=== PATIENT | male | born 1960 | race Caucasian/White ===

== ENCOUNTER 2017-11-03 13:54 | Emergency (ER) | payer OTHER ==
[~2017-11-03] VITALS: Ht 170.2 cm; Wt 63.5 kg
== END 2017-11-03 18:03 | disposition home or self-care (01) ==
LOC: ER 13:54
DX: T17.228A Food in pharynx causing other injury, initial encounter (principal); W45.8XXA Other foreign body or object entering through skin, initial encounter; Y93.89 Activity, other specified; Y92.89 Other specified places as the place of occurrence of the external cause; Y99.8 Other external cause status

== ENCOUNTER 2025-04-10 08:00 | Outpatient (CLI) | payer OTHER ==
[~2025-04-10] VITALS: Ht 167.6 cm; Wt 63.0 kg
[2025-04-10] MEDS ORDERED: SYNTHROID50 MCG PO (10:34)
[2025-04-10] MEDS ORDERED: ATORVASTATIN CA10 MG PO (10:36)
[2025-04-10] MEDS ORDERED: BRIMONIDINE TART5 ML (10:36)
[2025-04-10 10:40] VITALS: BP 146/81
[2025-04-10 10:48] LABS: URINE APPEARANCE Clear; URINE BILIRRUBIN Negative (NEGATIVE); URINE BLOOD Negative; URINE COLOR Yellow; URINE GLUCOSE Negative (NEGATIVE); URINE KETONE Negative (NEGATIVE); URINE LEUKOCYTE Negative; URINE NITRATE Negative; URINE PROTEIN Negative (NEGATIVE); URINE UROBILINOGEN 0.2 E.U./dl
[2025-04-10 10:53] LABS: URINE BACTERIA 2.3 uL (0.0-1933); URINE CAST 0.00 uL (0.0-1.40); URINE EPITHELIAL CELLS 0.6 uL (0.0-38.8); URINE RBC 0.4 uL (0.0-20.8); URINE WBC 1.0 uL (0.0-23.2)
[2025-04-10 10:59] LABS: BASO % 1.7 % (0.1-1.2); EOS # 0.15 (0.04-0.54); EOS % 2.5 % (0.7-7.0); LYMPH # 1.40 (1.18-3.74); LYMPH % 23.1 % (19.3-53.1); MEAN PLATELET VOLUME 12.10 fl (9.4-12.4); MONO # 0.51 (0.24-0.82); MONO % 8.4 % (4.7-12.5); NEUT # 3.88 (1.56-6.13); NEUT % 64.1 % (34.0-71.1); RED CELL DISTRIBUTION WIDTH 12.4 % (11.6-14.4)
[2025-04-10 11:07] LABS: INR 1.04
[2025-04-10 11:26] LABS: ALT/SGPT 31.0 U/L (12-78); AST/SGOT 22.0 U/L (15-37); BILIRUBIN TOTAL 0.76 mg/dL (0.3-1.2); BUN CREA RATIO 23.0 (7.0-25.0); CREATININE SERUM 1.23 mg/dL (0.70-1.30); GFR 59.06; GLOBULINA 3.3 G/DL (2.4-3.5); GLUCOSE FASTING 108.0 mg/dL (65-100); OSMOLALITY SERUM 285.0 MOSM/KG (275-295)
[2025-05-14] MEDS ORDERED: PROTONIX40 MG PO (13:51)
== END 2025-04-10 08:30 | disposition home or self-care (01) ==
LOC: RAD 08:00 → ADM 09:30 → CIR.AMB 04-23 09:30 → EDSTATUS 04-23 09:30 → CIR.AMB 04-23 14:15
PROVIDERS: ATTEND Orthopaedic Surgery Hand Surgery
DX: M18.12 Unilateral primary osteoarthritis of first carpometacarpal joint, left hand (principal); E11.9 Type 2 diabetes mellitus without complications; E78.00 Pure hypercholesterolemia, unspecified; E78.3 Hyperchylomicronemia; D65 Disseminated intravascular coagulation [defibrination syndrome]; D66 Hereditary factor VIII deficiency; N39.0 Urinary tract infection, site not specified; Z01.810 Encounter for preprocedural cardiovascular examination; I10 Essential (primary) hypertension